=== PATIENT | male | born 1985 | race Caucasian/White ===

== ENCOUNTER 2020-09-25 10:28 | Emergency (ER) | payer SELFPAY ==
[2020-09-25 10:36] VITALS: BP 136/98; PULSE 100; RESP 18; TEMP 36.4; O2SAT 98
--- NOTE | 2020-09-25 11:54 | ED.GENADULT ---
HPI - General Adult General Chief complaint: Dental/Oral Stated complaint: tooth infection Time Seen by Provider: 09/25/20 11:29 Source: patient Mode of arrival: ambulatory Limitations: no limitations History of Present Illness HPI narrative: Patient presents for evaluation of right upper dental pain for the last 3 days. Indicates that he fractured a tooth just prior to time of symptom onset. States that pain in the affected area has been throbbing since that time. He does not provide a numerical rating the pain. No radicular component to the pain. He woke from sleep this morning with right-sided facial swelling. No fever, chills, nausea, vomiting, trismus, problems handling secretions. He has been taking ibuprofen for symptoms and his pain is decreased with intake of the medication. He lives in [place] and is currently visiting the area as he was assisting a friend move. He contacted his dentist back home and he was advised to seek medical attention for a script for abx. Related Data Allergies Allergy/AdvReac Type Severity Reaction Status Date / Time Penicillins Allergy Rash Verified 09/25/20 11:23 Review of Systems Review of Systems: Narrative: CONSTITUTIONAL: Denies fever, chills, or sweats. EYES: Denies visual changes, redness, or discharge. ENT: Reports right upper dental pain with right-sided facial swelling. Denies rhinorrhea, congestion, sore throat, or otalgia. CARDIOVASCULAR: Denies chest pain, palpitations, or edema. RESPIRATORY: Denies cough or dyspnea. GASTROINTESTINAL: Denies abdominal pain, nausea, vomiting, or diarrhea. GENITOURINARY: Denies dysuria or hematuria. SKIN: Denies rash or itching. MUSCULOSKELETAL: Denies back pain, joint pain, or myalgia. NEUROLOGIC: Denies headache, numbness, dizziness, or weakness. PSYCHIATRIC: Denies anxiety or depression. [facility], [facility] Past Medical History Medical History No pertinent past medical history Family History Family History Mother No pertinent past medical history Social History Social History Smoking status: Current every day smoker Additional smoking assessment comments: 1 ppd Alcohol intake: current Alcohol use details: socially Substance use: never Additional living arrangements comments: Lives with girlfriend Gender identity (if verbalized by the patient): Male Sexual Orientation (if Verbalized by the Patient): Straight or Heterosexual Spiritual care concerns: No Exam Narrative: Exam Narrative: GENERAL: Well-appearing, well-nourished, and in no acute distress. HEAD: Normocephalic, atraumatic. EYES: PERRLA and EOMI. ENT: Nares clear, no rhinorrhea or epistaxis. Mucous membranes moist. Tooth #4 is fractured. There is a palpable area of fluctuance in the gumline superior to the fractured tooth. Oropharynx without tonsillar hypertrophy exudate or other lesions. Bilateral TMs pearly hernandez nonbulging. There is some mild right maxillary swelling present NECK: Supple. No adenopathy or masses. No carotid bruits or JVD CHEST: Clear to auscultation. No respiratory distress. No wheezes rales or rhonchi HEART: Regular rate and rhythm. No murmur heard. Normal peripheral pulses. ABDOMEN: Soft, nontender, nondistended, normal active bowel sounds. EXTREMITIES: Normal range of motion. No edema. SKIN: Warm, dry, no rash. NEURO: No focal deficits. Alert and oriented x3. PSYCH: Normal mood and affect. Course Course Emergency Course: This is a 35-year-old male who presented with complaints of right-sided abdominal pain. On physical exam he had an abscess superior to fractured tooth. After obtaining consent. Drainage of his abscess was performed with 18-gauge needle. Moderate amount of purulent discharge was extracted. He tolerated procedure well. He declined any an
== END 2020-09-25 12:50 | disposition home or self-care (01) ==
PROVIDERS: Emergency Provider Nurse Practitioner; PCP Family Medicine
DX: K04.7 Periapical abscess without sinus (principal); K03.81 Cracked tooth; F17.210 Nicotine dependence, cigarettes, uncomplicated
CPT/HCPCS: 41800; 99283